=== PATIENT | female | born 1995 | race Caucasian/White ===

== ENCOUNTER 2020-04-13 20:30 | Emergency (ER) | payer MEDICAID ==
[~2020-04-13] VITALS: Ht 160 cm; Wt 48.0 kg
[2020-04-13 20:36] VITALS: BP 104/61
--- NOTE | 2020-04-13 20:54 | PHYS DOC ---
Past History Past Medical History: Other Additional Past Medical Histor: retinal stroke (right eye) (CANDIE ISAACS APRN) Past Surgical History: No Surgical History Additional Past Surgical Histo: PFO closure (CANDIE ISAACS APRN) Alcohol Use: None Drug Use: None (CANDIE ISAACS APRN) Adult General Chief Complaint Chief Complaint: DENTAL PROBLEM HPI HPI Patient is a 25 year old female who presents with left-sided upper dental pain since yesterday, patient states she took 1 500 mg Tylenol which woke up this morning, she took 1 more at noon, she took 1 more approximately 1600 with little relief. Patient states her current pain level is an 8/10 on a 1-10 pain scale. Patient denies any other symptoms, patient denies any other health problems patient states she is allergic to sulfa medications only. Patient denies injury to her teeth. (CANDIE ISAACS APRN) Review of Systems Review of Systems Constitutional: Denies fever or chills Eyes: Denies change in visual acuity, redness, or eye pain HENT: Denies nasal congestion or sore throat Respiratory: Denies cough or shortness of breath Cardiovascular: No additional information not addressed in HPI GI: Denies abdominal pain, nausea, vomiting, bloody stools or diarrhea : Denies dysuria or hematuria Musculoskeletal: Denies back pain or joint pain Integument: Denies rash or skin lesions Neurologic: Denies headache, focal weakness or sensory changes Endocrine: Denies polyuria or polydipsia All other systems were reviewed and found to be within normal limits, except as documented in this note. (CANDIE ISAACS APRN) Current Medications Current Medications Patient states she does not take prescription medications at home. (CANDIE ISAACS APRN) Allergies Allergies Allergies Coded Allergies Type Severity Reaction Last Updated Verified Sulfa (Sulfonamide Antibiotics) Allergy Unknown 04/13/20 Yes (CANDIE ISAACS APRN) Physical Exam Physical Exam Constitutional: Well developed, well nourished, no acute distress, non-toxic appearance. HENT: Normocephalic, atraumatic, bilateral external ears normal, oropharynx moist, no oral exudates, nose normal. Examination of oral cavity revealed dental caries, no abscesses, no drainage, multiple missing teeth, patient specific area of pain there was no tooth, slight redness of the gum and adjacent surfaces. Eyes: PERRLA, EOMI, conjunctiva normal, no discharge. Neck: Normal range of motion, no tenderness, supple, no stridor. [] Cardiovascular:Heart rate regular rhythm, no murmur [] Lungs & Thorax: Bilateral breath sounds clear to auscultation [] Abdomen: Bowel sounds normal, soft, no tenderness, no masses, no pulsatile masses. [] Skin: Warm, dry, no erythema, no rash. [] Back: No tenderness, no CVA tenderness. [] Extremities: No tenderness, no cyanosis, no clubbing, ROM intact, no edema. [] Neurologic: Alert and oriented X 3, normal motor function, normal sensory function, no focal deficits noted. [] Psychologic: Affect normal, judgement normal, mood normal. [] (CANDIE ISAACS APRN) Current Patient Data Vital Signs Vital Signs Date Time Temp Pulse Resp B/P (MAP) Pulse Ox O2 Delivery O2 Flow Rate FiO2 04/13/20 20:36 99.1 82 16 104/61 (75) 96 (CANDIE ISAACS APRN) EKG EKG [] (CANDIE ISAACS APRN) Radiology/Procedures Radiology/Procedures [] (CANDIE ISAACS APRN) Heart Score Risk Factors: Risk Factors: DM, Current or recent (<one month) smoker, HTN, HLP, family history of CAD, obesity. Risk Scores: Risk Factors: DM, Current or recent (<one month) smoker, HTN, HLP, family history of CAD, obesity. (CANDIE ISAACS APRN) Course & Med Decision Making Course & Med Decision Making Pertinent Labs and Imaging studies reviewed. (See chart for details) 25-year-old female presented to emergency department complaint of dental pain started yesterday, examination consistent with dentalgia, dental caries, patient was encouraged to see a dentist soon, will treat in the emergency department today with 2 Mode's 5/325 mg and start on Augmentin. Patient will be given prescriptions for Augmentin and ibuprofen. Patient gave verbal understanding of discharge instructions, prescription medication instructions, follow-up with dentist soon, patient had no further questions or concerns, discharged home with out incident. (CANDIE ISAACS APRN) Dragon Disclaimer Dragon Disclaimer This electronic medical record was generated, in whole or in part, using a voice recognition dictation system. (CANDIE ISAACS APRN) Departure Departure: Impression: Primary Impression: Dentalgia Additional Impression: Dental caries Disposition: 01 DC HOME SELF CARE/HOMELESS Condition: GOOD Referrals: PCP,NO (PCP) Patient Instructions: Dental Abscess Additional Instructions: Take antibiotic as prescribed, return to the emergency department for worsening symptoms, see a dentist soon. EMERGENCY DEPARTMENT GENERAL DISCHARGE INSTRUCTIONS Thank you for coming to [facility] (ED) today and trusting us with you care. We trust that you had a positivie experience in our Emergency Department. If you wish to speak to the department management, you may call the director at [phone]. YOUR FOLLOW UP INSTRUCTIONS ARE FOLLOWS: 1. Do you have a private Doctor? If you do not have a private doctor, please ask for a resource list of physicians or clinics that may be able to assist you with follow up care. 2. The Emergency Physician has interpreted your x-rays. The X-Ray specialist will also review them. If there is a change in the findings, you will be notified in 48 hours when at all possible. 3. A lab test or culture has been done, your results will be reviewed and you will be notified if you need a change in treatment. ADDITIONAL INSTRUCTIONS AND INFORMATION: 1. Your care today has been supervised by a physician who is specially trained in emergency care. Many problems require more than one evaluation for a complete diagnosis and treatment. We recommend that you schedule your follow up appointment as recommended to ensure complete treatment of you illness or injury. If you are unable to obtain follow up care and continue to have a problem, or if your condition worsens, we recommend that you return to the ED. 2. We are not able to safely determine your condition over the phone nor are we able to give sound medical advice over the phone. For these safety reasons, if you call for medical advice we will ask you to come to the ED for further evaluation. 3. If you have any questions regarding these discharge instructions please call the ED at [phone]. SAFETY INFORMATION: In the interest of safety, wellness, and injury prevention; we encourage you to wear your sealbelt, if you smoke; quite smoking, and we encourage family to use a protective helmet for bicycling and other sporting events that present an increased risk for head injury. IF YOUR SYMPTOMS WORSEN OR NEW SYMPTOMS DEVELOP, OR YOU HAVE CONCERNS ABOUT YOUR CONDITION; OR IF YOUR CONDITION WORSENS WHILE YOU ARE WAITING FOR YOUR FOLLOW UP APPOINTMENT; EITHER CONTACT YOUR PRIMARY CARE DOCTOR, THE PHYSICIAN WHOSE NAME AND NUMBER YOU WERE GIVEN, OR RETURN TO THE ED IMMEDIATELY. Scripts Ibuprofen (IBUPROFEN) 600 Mg Tablet 600 MG PO TID for DENTAL PAIN, #15 TAB 0 Refills Prov: CANDIE ISAACS APRN 04/13/20 Amoxicillin/Potassium Clav (AUGMENTIN 875-125 TABLET) 1 Each Tablet 1 TAB PO BID for DENTAL INFECTION for 10 Days, #20 TAB 0 Refills Prov: CANDIE ISAACS APRN 04/13/20 Attending Signature Attending Signature I have reviewed the PA/GUT PULLER's note and plan of care. I was available for consultation as needed during the patient's visit in the emergency department. I agree with the clinical impression, plan, and disposition. (CANDIE LEUNG DO) Problem Qualifiers CANDIE ISAACS APRN Apr 13, 2020 20:54 CANDIE LEUNG DO Apr 14, 2020 00:52
[2020-04-13] MEDS ORDERED: HYDROcodone/APAP 5/325MG 1 TAB TABLET PO ONE (21:00)
[2020-04-13] MEDS ORDERED: AMOXICILLIN/K CLAV 875/125MG TABLET. PO ONE (21:00)
[2020-04-13] MEDS ORDERED: AMOX1TAB61 PO (21:02)
[2020-04-13] MEDS ORDERED: IBUP600T16 PO (21:02)
== END 2020-04-13 21:10 | disposition home or self-care (01) ==
LOC: ER 20:30
DX: K02.9 Dental caries, unspecified (principal); Z88.2 Allergy status to sulfonamides
CPT/HCPCS: 99283

== ENCOUNTER 2020-09-09 14:10 | Emergency (ER) | payer MEDICAID ==
[~2020-09-09] VITALS: Ht 160 cm; Wt 45.0 kg
[~2020-09-09 14:10] MED LIST: AMOX1TAB61 PO; IBUP600T16 PO
[2020-09-09] MEDS ORDERED: ACETAMINOPHEN 500 MG TABLET PO ONE (14:45)
[2020-09-09] MEDS ORDERED: IV NORMAL SALINE 1,000ML 1,000 ML IV ONE (14:45)
[2020-09-09 14:50] VITALS: BP 101/44
--- NOTE | 2020-09-09 14:51 | PHYS DOC ---
Past History Past Medical History: Other Additional Past Medical Histor: retinal stroke (right eye) Past Surgical History: No Surgical History Additional Past Surgical Histo: PFO closure Alcohol Use: None Drug Use: None General Adult EDM: Chief Complaint: DIARRHEA HPI: HPI: Patient is a 25-year-old female coming in for nonbloody, nonmelanous diarrhea since last night. Patient states that last night the diarrhea was coming about every hour. Denies any nausea or vomiting. Has some mild low abdominal pain. Patient does not have any sick contacts, recent antibiotic use, recent hospitalization, recent travel, recent undercooked or raw foods. Denies any fevers. Patient states she took some Pepto-Bismol this morning and has not had a diarrhea bowel movement in approximately 3-1/2 to 4 hours. No change in urination. Review of Systems: Review of Systems: All other systems within normal limits except for as noted in the HPI Current Medications: Current Meds: Current Medications Medications (Trade) Dose Ordered Sig/Olga Start Time Stop Time Status Last Admin Dose Admin Acetaminophen (Tylenol) 1,000 mg 1X ONCE 09/09/20 14:45 09/09/20 14:40 DC Sodium Chloride 1,000 ml @ 1,000 mls/hr 1X ONCE 09/09/20 14:45 09/09/20 14:40 DC Allergies: Allergies: Allergies Coded Allergies Type Severity Reaction Last Updated Verified Sulfa (Sulfonamide Antibiotics) Allergy Unknown 04/13/20 Yes Physical Exam: PE: Constitutional: Well developed, well nourished, no acute distress, non-toxic appearance. [] HENT: Normocephalic, atraumatic, bilateral external ears normal, nose normal. [] Eyes: PERRLA, conjunctiva normal, no discharge. [] Neck: No rigidity, supple, no stridor. [] Cardiovascular: Regular rate and rhythm, brisk cap refill [] Lungs & Thorax: Non labored symmetric respirations, no tachypnea or respiratory distress [] Abdomen: Soft, nondistended, no tenderness to palpation, no guarding or rebound. Skin: Warm, dry, no erythema, no rash. [] Back: Unremarkable Extremities: No deformities, range of motion grossly intact, no lower extremity edema [] Neurologic: Alert and oriented X 3, no focal deficits noted. [] Psychologic: Affect normal, judgement normal, mood normal. [] EKG: EKG: [] Radiology/Procedures: Radiology/Procedures: [] Heart Score: C/O Chest Pain: No Risk Factors: Risk Factors: DM, Current or recent (<one month) smoker, HTN, HLP, family history of CAD, obesity. Risk Scores: Score 0 - 3: 2.5% MACE over next 6 weeks - Discharge Home Score 4 - 6: 20.3% MACE over next 6 weeks - Admit for Clinical Observation Score 7 - 10: 72.7% MACE over next 6 weeks - Early Invasive Strategies Course & Med Decision Making: Course & Med Decision Making Pertinent Labs and Imaging studies reviewed. (See chart for details) [] Dragon Disclaimer: Dragon Disclaimer: This electronic medical record was generated, in whole or in part, using a voice recognition dictation system. Departure Departure: Impression: Primary Impression: Diarrhea Disposition: HOME / SELF CARE / HOMELESS Condition: STABLE Referrals: PCP,NO (PCP) Patient Instructions: Diet for Diarrhea, Adult Additional Instructions: Take [id number] antidiarrheal medicine such as loperamide as needed for diarrhea. Also recommend starting probiotics. These are available at your pharmacy. If you have having trouble finding them ask the pharmacy counter for assistance. [facility] for primary care follow-up Address: [address] [place] [id number] JEFF COLES MD Sep 09, 2020 14:51
== END 2020-09-09 15:40 | disposition home or self-care (01) ==
LOC: ER 14:10
DX: R19.7 Diarrhea, unspecified (principal); R10.30 Lower abdominal pain, unspecified; Z88.2 Allergy status to sulfonamides
CPT/HCPCS: 99282

== ENCOUNTER 2021-02-10 23:58 | Emergency (ER) | payer MEDICAID ==
[~2021-02-10] VITALS: Ht 160 cm; Wt 47.0 kg
--- NOTE | 2021-02-11 00:03 | PHYS DOC ---
Past History Past Medical History: No Pertinent History Additional Past Medical Histor: retinal stroke (right eye) Past Surgical History: Other Additional Past Surgical Histo: PFO repair Alcohol Use: None Drug Use: None Adult General HPI HPI Patient is a 26-year-old female who presents with a chief complaint of dental pain, 6 out of 10, sharp in nature in the lower left molar. States she has had poor dentition in the past but has not seen a dentist yet as she has not had time. Denies any fevers, neck pain, pain or trouble swallowing, nausea, vomiting. States she is used Tylenol and ibuprofen with minimal relief. Review of Systems Review of Systems Review of systems otherwise unremarkable except noted in HPI Allergies Allergies Allergies Coded Allergies Type Severity Reaction Last Updated Verified Sulfa (Sulfonamide Antibiotics) Allergy Unknown 04/13/20 Yes Physical Exam Physical Exam Constitutional: Well developed, well nourished, no acute distress, non-toxic appearance. [] HENT: Normocephalic, atraumatic, bilateral external ears normal, oropharynx moist, no oral exudates, poor dentition generally, most likely dental carry to use noted, nose normal. [] Eyes: PERRLA, EOMI, conjunctiva normal, no discharge. [] Neck: Normal range of motion, no tenderness, supple, no stridor. [] Neurologic: Alert and oriented X 3, normal motor function, normal sensory function, no focal deficits noted. [] Psychologic: Affect normal, judgement normal, mood normal. [] EKG EKG [] Radiology/Procedures Radiology/Procedures [] Heart Score C/O Chest Pain: No Risk Factors: Risk Factors: DM, Current or recent (<one month) smoker, HTN, HLP, family history of CAD, obesity. Risk Scores: Risk Factors: DM, Current or recent (<one month) smoker, HTN, HLP, family history of CAD, obesity. Course & Med Decision Making Course & Med Decision Making Patient is a 26-year-old female who presents with dental pain Vital signs not concerning. Physical exam noted above. Declined dental block. Given oral pain medication. Started on amoxicillin. Given contact information for local free dentist and emergency dentist. Advised to call dentist in the morning and get in DALILA with whoever will take her to discuss need for filling versus root canal versus extraction. Advised on symptom management at home. Gave return precautions to the ED. Patient grateful, verbalized understanding and agreed with plan of discharge. [] Dragon Disclaimer Dragon Disclaimer This electronic medical record was generated, in whole or in part, using a voice recognition dictation system. Departure Departure: Impression: Primary Impression: Pain, dental Disposition: HOME / SELF CARE / HOMELESS Condition: GOOD Referrals: PCP,ROOSEVELT (PCP) MEDINA WARD Patient Instructions: Dental Pain Additional Instructions: Thank you for coming into the emergency department tonight and allowing us to take care of you. Please read the attached information carefully to go back over things we discussed. Please begin a Tylenol, ibuprofen and Orajel regimen as we discussed and demonstrated. Please take all your antibiotics as prescribed. Please call one of the dentists at the numbers provided first thing in the morning to set up an appointment DALILA to discuss need for filling versus root canal versus extraction. Scripts Amoxicillin (AMOXICILLIN) 500 Mg Capsule 1 CAP PO BID for dental for 10 Days, #20 CAP Prov: CHRIS SAVAGE MD 02/11/21 CHRIS SAVAGE MD Feb 11, 2021 00:03
[2021-02-11] MEDS ORDERED: AMOX500C PO (00:08)
[2021-02-11 00:14] VITALS: BP 128/70
[2021-02-11] MEDS ORDERED: oxyCODONE/APAP 5/325 1 TAB TABLET PO ONE (00:30)
[2021-02-11] MEDS ORDERED: BENZOCAINE ONE 20% MUCOSAL SPRAY. MM (00:30)
[2021-02-11] MEDS ORDERED: AMOXICILLIN 250 MG CAPSULE PO ONE (00:30)
[2021-02-11] MEDS ORDERED: IBUPROFEN 600 MG TABLET. PO ONE (00:30)
== END 2021-02-11 00:31 | disposition home or self-care (01) ==
LOC: ER 23:58
DX: K08.89 Other specified disorders of teeth and supporting structures (principal)
CPT/HCPCS: 99284-25

== ENCOUNTER 2021-02-15 20:42 | Emergency (ER) | payer OTHER, MEDICAID ==
[~2021-02-15] VITALS: Ht 160 cm; Wt 47.0 kg
[~2021-02-15 20:42] MED LIST changes: +AMOX500C PO
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
[2021-02-15 23:14] VITALS: BP 93/49
== END 2021-02-15 23:29 | disposition home or self-care (01) ==
LOC: ER 20:42
DX: M25.511 Pain in right shoulder (principal); M25.561 Pain in right knee; Z88.2 Allergy status to sulfonamides; V49.49XA Driver injured in collision with other motor vehicles in traffic accident, initial encounter; Y93.I9 Activity, other involving external motion; Y92.89 Other specified places as the place of occurrence of the external cause; Y99.8 Other external cause status
CPT/HCPCS: 73030; 73564; 99284